=== PATIENT | female | born 1970 | race Caucasian/White ===

== ENCOUNTER → 2021-04-12 10:01 | Outpatient (CLI) | payer BC, SELFPAY ==
[2021-04-12 10:31] LABS: Absolute Lymphocyte Count 1.24 X10^3/uL (0.83-4.51); Absolute Neutrophil Count 2.6 X10^3/uL (2.0-7.7); Basophil# 0.04 X10^3/uL; Basophil% 0.9 % (0-1); Eosinophil# 0.02 X10^3/uL; Eosinophils% 0.5 % (0-5); Hematocrit 39.1 % (37-47); Hemoglobin 13.1 g/dL (12.0-15.0); Lymphocyte # 1.24 X10^3/ul (0.83-4.51); Lymphocyte % 28.9 % (19-41); Mean Corp Hgb Conc 33.5 g/dL (32-36); Mean Corpuscular Hgb 29.4 pg (27.0-32.0); Mean Corpuscular Volume 87.7 fL (81-99); Mean Platelet Vol. 10.5 fl (6.2-12.0); Monocyte% 9.3 % (0-10); NRBC Flagged by Analyzer 0 % (0-5); Neutrophil # 2.58 X10^3/uL (2.7-7.7); Neutrophil % 60.2 % (47-70); Platelet Count 196 K/mm3 (150-450); RBC Distribution Width SD 41.7 fl (35.1-43.9); Red Blood Count 4.46 M/mm3 (4.2-5.4); White Blood Count 4.3 K/mm3 (4.4-11.0)
[2021-04-12 11:07] LABS: Vitamin D,25 Hydroxy 33.1 ng/mL
[2021-04-12 11:14] LABS: AST(SGOT) 22 U/L (15-37); Alanine Aminotransfer ALT/SGPT 23 U/L (13-56); Albumin, Serum 3.9 g/dL (3.2-5.0); Alkaline Phosphatase 62 U/L (45-117); Anion Gap 7 (5-15); BUN 13 mg/dL (7-18); BUN/Creat Ratio 15.3 RATIO (10-20); Chloride 106 mmol/L (98-107); Cholesterol 222 mg/dL (200); Creatinine, Serum 0.85 mg/dL (0.55-1.02); EST Glomerular Filtration Rate 74 mL/min (>60); Est Glom Filt Rate - Afr Amer 90 mL/min (>60); Free T3 2.4 pg/mL (2.18-3.98); Glucose 87 mg/dL (74-106); High Density Lipoprotein 80 mg/dL; Iron 89 ug/dL (50-170); Iron Binding Capacity,Total 421 ug/dL (250-450); Potassium 3.8 mmol/L (3.5-5.1); Protein, Total 7.9 g/dL (6.4-8.2); Sodium Level 139 mmol/L (136-145); T4 Free Direct 0.55 ng/dL (0.76-1.46); Thyroid Stim Hormone (TSH) 7.24 uIU/mL (0.358-3.74); Triglycerides 68 mg/dL; Very Low Density Lipoprotein 14 mg/dL (5-40)
[2021-04-23 14:44] LABS: T3 Reverse 6.5 ng/dL (9.2-24.1); Thyroglobulin Antibody < 1.0 IU/mL (0.0-0.9); Thyroid Peroxidase AB < 8 IU/mL (0-34)
== END ==
PROVIDERS: PCP Family Medicine
DX: E03.9 Hypothyroidism, unspecified (principal); D64.9 Anemia, unspecified; E44.1 Mild protein-calorie malnutrition; E78.5 Hyperlipidemia, unspecified; E55.9 Vitamin D deficiency, unspecified
CPT/HCPCS: 36415; 80053; 80061; 82306; 83540; 83550; 84439; 84443; 84481; 84482; 85025; 86376; 86800

== ENCOUNTER 2021-07-04 10:21 | Outpatient (CLI) | payer BC, SELFPAY ==
[2021-07-04 11:29] LABS: Free T3 2.4 pg/mL (2.18-3.98); T4 Free Direct 0.74 ng/dL (0.76-1.46); Thyroid Stim Hormone (TSH) 4.01 uIU/mL (0.358-3.74)
[2021-07-04 11:30] LABS: Vitamin D,25 Hydroxy 60.6 ng/mL
== END 2021-07-04 23:59 | disposition home or self-care (01) ==
PROVIDERS: PCP Family Medicine; Visit Provider Chiropractor
DX: E55.9 Vitamin D deficiency, unspecified (principal); E03.9 Hypothyroidism, unspecified; R53.83 Other fatigue
CPT/HCPCS: 36415; 82306; 84439; 84443; 84481

== ENCOUNTER → 2021-11-08 | Outpatient (CLI) | payer BC, SELFPAY ==
[2021-11-08 11:39] LABS: Free T3 2.5 pg/mL (2.18-3.98); T4 Free Direct 0.81 ng/dL (0.76-1.46); Thyroid Stim Hormone (TSH) 0.74 uIU/mL (0.358-3.74)
== END | disposition home or self-care (01) ==
LOC: LAB 10:04
DX: E03.9 Hypothyroidism, unspecified (principal)
CPT/HCPCS: 36415; 84439; 84443; 84481

== ENCOUNTER → 2022-03-04 | Outpatient (CLI) | payer BC, SELFPAY ==
[2022-03-04 11:05] LABS: Free T3 2.1 pg/mL (2.18-3.98); T4 Free Direct 0.97 ng/dL (0.76-1.46); Thyroid Stim Hormone (TSH) 6.22 uIU/mL (0.358-3.74)
== END | disposition home or self-care (01) ==
LOC: LAB 09:19
DX: E03.9 Hypothyroidism, unspecified (principal)
CPT/HCPCS: 36415; 84439; 84443; 84481

== ENCOUNTER → 2022-07-30 | Outpatient (CLI) | payer BC, SELFPAY ==
[2022-07-30 11:05] LABS: Vitamin D,25 Hydroxy 55.4 ng/mL
[2022-07-30 11:14] LABS: T4 Free Direct 0.65 ng/dL (0.76-1.46)
== END | disposition home or self-care (01) ==
DX: E55.9 Vitamin D deficiency, unspecified (principal); E03.9 Hypothyroidism, unspecified
CPT/HCPCS: 36415; 82306; 84439; 84443; 84481

== ENCOUNTER → 2023-07-30 | Outpatient (CLI) | payer BC, SELFPAY ==
[2023-07-30 11:31] LABS: T4 Free Direct 0.63 ng/dL (0.76-1.46); Thyroid Stim Hormone (TSH) 0.75 uIU/mL (0.358-3.74)
== END | disposition home or self-care (01) ==
LOC: LAB 09:21
DX: E03.9 Hypothyroidism, unspecified (principal)
CPT/HCPCS: 36415; 84439; 84443; 84481

== ENCOUNTER → 2024-09-09 | Outpatient (CLI) | payer BC, SELFPAY ==
[2024-09-09 13:45] LABS: Free T3 2.7 pg/mL (2.18-3.98)
== END | disposition home or self-care (01) ==
LOC: LAB 10:05
DX: E03.9 Hypothyroidism, unspecified (principal)
CPT/HCPCS: 36415; 84439; 84443; 84481

== ENCOUNTER → 2025-02-28 | Outpatient (CLI) | payer BC, SELFPAY ==
[2025-02-28 12:01] LABS: Hematocrit 43.3 % (37-47); Hemoglobin 14.5 g/dL (12.0-15.0); Immature Granulocytes Count 0.020 X10^3/uL (0.0-0.0); Mean Corp Hgb Conc 33.5 g/dL (32-36); Mean Corpuscular Volume 86.4 fL (81-99); Mean Platelet Vol. 10.8 fl (6.2-12.0); NRBC Flagged by Analyzer 0 % (0-5); Platelet Count 172 K/mm3 (150-450); RBC Distribution Width CV 13.2 % (11.6-14.6); RBC Distribution Width SD 41.1 fl (35.1-43.9); Red Blood Count 5.01 M/mm3 (4.2-5.4); White Blood Count 4.3 K/mm3 (4.4-11.0)
--- OUTSIDE RECORDS SUMMARY | 2025-02-28 12:07 | XMS RPT_ITS | CCD ---
Author Organization [facility] Care Team Providers Care Bat Boy/Girl Name Role Phone Unavailable Primary Care Provider Unavailabl e RIANNA ESTEVES Referring Unavailable RIANNA ESTEVES Attending Unavailable RIANNA ESTEVES Primary Care Unavailable Problems Problem Classification Problem Date Documented Da te Episodic/Chronic Thyroid disorders (1 source) Hypothyroidism, unspecified; Translations: [Hypothyroidism, unspecified] Onset: 09-14-2024 Chronic Results Test Name Value Interpretation Reference Range Facility Free T3on 09-09-2024 Free T3 [Mass/Vol] 2.7 pg/mL Normal 2.18-3.98 [facility] Comment on above: Performed By: #### L 506.0400, L501.62776, L501.9520 #### [facility] [address] [place], [place], [id number] T4 Free Directon 09-09-2024 T4 FREE DIRECT 0.50 ng/dL Low 0.76-1.46 [facility] Comment on above: Performed By: #### L 506.0400, L501.79803, L501.9520 #### [facility] [address] [place], [address] Thyroid Stim Hormone (TSH)on 09-09-2024 TSH 4.560 uIU/mL High 0.300-4.200 [facility] Comment on above: Performed By: #### L 506.0400, [id number], L501.9520 #### [facility] [address] [place], [address] No Panel Informationon 07-29 Free Triiodothyronine (T3) pg/dL 3.0 pg/mL 2.18-3.98 [facility] Serum or plasma thyroid stim ulating hormone (TSH) measurement (units/volume)on 07-30-2023 TSH Qn 0.75 uIU/mL 0.358-3.74 [facility] Thin prep Papanicolaou smear with manual screeningon 07-30-2023 Thin prep Papanicolaou smear with manual screening 0.63 ng/dL 0.76-1.46 [facility] - Chemistry and C hemistry - challengeon 07-30-2022 Free T4 [Mass/Vol] 0.65 ng/dL 0.76-1.46 [facility] No Panel Informationon 07-30 Free Triiodothyronine (T3) pg/dL 3.0 pg/mL 2.18-3.98 [facility] Miscellaneous Test See comment [facility] Comment on above: TEST RESULT LIMITSSe lenium, Serum/Plasma, 129 ug/L 93-198 TESTING PERFORMED AT [facility]. ORIGINAL REPORT ON FILE IN LAB CONTAINS ADDITIONAL TEST SITE INFORMATION. Thyroid Stimulating Hormone (TSH) 1.00 uIU/mL 0.358-3.74 [facility] Vitamin D 25-Hydroxy 55.4 ng/mL [facility] Comment on above: Vitamin D 25(OH) Sta tus Range Deficiency <20 ng/mL (50nmol/L) Insufficiency 20 - 30 ng/mL (50 - 75 nmol/L) Sufficiency 30 - 100 ng/mL (75 - 250 nmol/L) Toxicity >100 ng/mL (>250 nmol/L) Laboratory - Chemistry and C hemistry - challengeon 03-04-2022 Free T4 [Mass/Vol] 0.97 ng/dL 0.76-1.46 [facility] Work Phone: No Panel Informationon 03-04 Free Triiodothyronine (T3) pg/dL 2.1 pg/mL 2.18-3.98 [facility] Work Phone: Thyroid Stimulating Hormone (TSH) 6.22 uIU/mL 0.358-3.74 [facility] Work Phone: Laboratory - Chemistry and C hemistry - challengeon 11-08-2021 Free T4 [Mass/Vol] 0.81 ng/dL 0.76-1.46 [facility] Work Phone: No Panel Informationon 11-08 Free Triiodothyronine (T3) pg/dL 2.5 pg/mL 2.18-3.98 [facility] Work Phone: Thyroid Stimulating Hormone (TSH) 0.74 uIU/mL 0.358-3.74 [facility] Work Phone: Laboratory - Chemistry and C hemistry - challengeon 07-04-2021 Free T4 [Mass/Vol] 0.74 ng/dL 0.76-1.46 [facility] Work Phone: No Panel Informationon 07-04 Free Triiodothyronine (T3) pg/dL 2.4 pg/mL 2.18-3.98 [facility] Work Phone: Miscellaneous Test See comment [facility] Work Phone: Comment on above: TEST RESULT LIMITSIo dine, Serum or Plasma 36.3 Low ug/L 40.0-92.0 Limit of quantitation = 20 TESTING PERFORMED AT [facility]. ORIGINAL REPORT ON FILE IN LAB CONTAINS ADDITIONAL TEST SITE INFORMATION. Thyroid Stimulating Hormone (TSH) 4.01 uIU/mL 0.358-3.74 [facility] Work Phone: Vitamin D 25-Hydroxy 60.6 ng/mL [facility] Work Phone: Comment on above: Vitamin D 25(OH) Sta tus Range Deficiency <20 ng/mL (50nmol/L) Insufficiency 20 - 30 ng/mL (50 - 75 nmol/L) Sufficiency 30 - 100 ng/mL (75 - 250 nmol/L) Toxicity >100 ng/mL (>250 nmol/L) Miscellaneous Referred Testo n 08-29-2020 Result 1: SEE BELOW Normal [facility] Comment on above: Order Comment: royal blue no additive Result Comment: Iodi ne, Serum Iodine, Serum 50.6 ug/L (Ref Interval: 40.0-92.0) Values greater than 250 ug/L may indicate iodine overload. This test was developed and its performance characteristics determined by [employer]. It has not been cleared or approved by the [place] Food and Drug Administration. This test was performed in a CLIA certified laboratory and is intended for clinical purposes. Performed By: #### F T4M, TSH5, T3FE #### [facility] [address] [place] [address] #### VD25H #### [facility] [employer] [facility] [address] [place] [address] #### MSO #### [facility] [employer] Vit D 25-OH, Totalon 021 Vit D 25-OH, Total 32 ng/mL Normal 30-100 [facility] Comment on above: Order Comment: royal blue no additive Result Comment: Ther apy is based on measurement of Total 25-OHD with the following classification levels: Less than 20 ng/mL: Indicative of Vit D deficiency 20-30 ng/mL: Suggests Vit D insufficiency Optimal: Greater than or equal to 30 ng/mL Test performed by [employer] Immunoassay, measuring Total Vitamin D, not individual fractions. Performed By: #### F T4M, TSH5, T3FE #### [facility] [address] [place], [place] #### VD25H #### [facility] [address] [place] [address] #### MSO #### [employer] Free T4on 08-22-2020 Free T4 [Mass/Vol] 0.63 ng/dL Low 0.78-2.19 [facility] Comment on above: Order Comment: royal blue no additive Performed By: #### F T4M, TSH5, T3FE #### [facility] [address] [place], [place] #### VD25H #### [facility] [address] [place] [address] #### MSO #### [employer] Miscellaneous Referred Testo n 08-22-2020 Performed By: see below Normal [facility] Comment on above: Order Comment: royal blue no additive Result Comment: [employer] [place], [place] Performed By: #### F T4M, TSH5, T3FE #### [place] [address] [place], [place] #### VD25H #### [facility] [address] [place] [address] #### MSO #### [employer] GENER[employer] Test Name serum iodine Normal [facility] Comment on above: Order Comment: royal blue no additive Performed By: #### F T4M, TSH5, T3FE #### [place] [address] [place], [place] #### VD25H #### [facility] [address] [place] [address] #### MSO #### [employer] T3, Freeon 08-22-2020 Free T3 [Mass/Vol] 3.68 pg/mL Normal 2.77-5.27 [facility] Comment on above: Order Comment: royal blue no additive Result Comment: . Performed By: #### F T4M, TSH5, T3FE #### [place] [address] [place], [place] #### VD25H #### [facility] [address] [place] [address] #### MSO #### [employer] GENERIC SENDOUT Free T3 [Mass/Vol] 3.68 pg/mL 2.77 - 5. 27 pg/mL [employer] Work Phone: Comment on above: . Test Performed by [facility], [address] [place] [address] royal blue no additive [employer] Work Phone: T4, Freeon 08-22-2020 Free T4 [Mass/Vol] 0.63 ng/dL Low 0.78 - 2. 19 ng/dL [employer] Work Phone: Interpretation and review of laboratory results Abnormal [facility] Work Phone: Test Performed by [facility], [address] [place] [phone] royal blue no additive [employer] Work Phone: TSH without Reflexon 021 TSH Qn 4.632 u[IU]/mL 0.465 - 4.680 u[IU]/mL [employer] Work Phone: Test Performed by [facility], [address] [place] [address] royal blue no additive [employer] Work Phone: Thyroid Stim. Hormoneon 08-10 Thyroid Stim. Hormone 4.632 u[IU]/mL Normal 0.465-4.68 0 [facility] Comment on above: Order Comment: royal blue no additive Performed By: #### F T4M, TSH5, T3FE #### [facility] [address] [place] [id number] #### VD25H #### [facility] [address] [place] [address] #### MSO #### [facility] Miscellaneous Referred Testo n 03-23-2020 Result 1: see below Normal [facility] Comment on above: Order Comment: Serum Iodine [place] Blue tube Result Comment: Iodi ne, Serum 53.5 ug/L (Ref Interval: 40.0-92.0) Performed By: #### M SO #### [employer] #### T3FE, TSH5, FT4M #### [address] #### VD25H #### [facility] [address] [place] [address] Vit D 25-OH, Totalon 020 Vit D 25-OH, Total 40 ng/mL Normal 30-100 [facility] Comment on above: Order Comment: Serum Iodine [place] Blue tube Result Comment: Mode rately hemolysed, interpret with caution. Therapy is based on measurement of Total 25-OHD with the following classification levels: Less than 20 ng/mL: Indicative of Vit D deficiency 20-30 ng/mL: Suggests Vit D insufficiency Optimal: Greater than or equal to 30 ng/mL Test performed by [employer] Immunoassay, measuring Total Vitamin D, not individual fractions. Performed By: #### M SO #### [employer] #### T3FE, TSH5, FT4M #### [address] #### VD25H #### [facility] [address] [place] [address] Free T4on 03-16-2020 Free T4 [Mass/Vol] 0.65 ng/dL Low 0.78-2.19 [facility] Comment on above: Order Comment: Serum Iodine [place] Blue tube Performed By: #### M SO #### [employer] #### T3FE, TSH5, FT4M #### [address] #### VD25H #### [facility] [address] [place] [address] Miscellaneous Referred Testo n 03-16-2020 Performed By: see below Normal [facility] Comment on above: Order Comment: Serum Iodine [place] Blue tube Result Comment: [email or web address] [place] Performed By: #### M SO #### [employer] #### T3FE, TSH5, FT4M #### [address] [place], [place] #### VD25H #### [facility] [address] [place] [address] Test Name iodine. Normal [facility] Comment on above: Order Comment: Serum Iodine [place] Blue tube Performed By: #### M SO #### [employer] #### T3FE, TSH5, FT4M #### [facility] [address] [place], [place] #### VD25H #### [facility] [address] [place] [address] Otheron 03-16-2020 Test Performed by [address] [address] Serum Iodine [place] Blue tube [place], [place] T3, Freeon 03-16-2020 Free T3 [Mass/Vol] 4.07 pg/mL Normal 2.77-5.27 [facility] Comment on above: Order Comment: Serum Iodine [place] Blue tube Result Comment: . Performed By: #### M SO #### [employer] #### T3FE, TSH5, FT4M #### [address] #### VD25H #### [facility] [address] [place] [address] Free T3 [Mass/Vol] 4.07 pg/mL 2.77 - 5. 27 pg/mL [place], [place] Comment on above: . T4, Freeon 03-16-2020 Free T4 [Mass/Vol] 0.65 ng/dL Low 0.78 - 2. 19 ng/dL [place] Interpretation and review of laboratory results Abnormal [place] TSH without Reflexon 020 TSH Qn 2.168 u[IU]/mL 0.465 - 4.68 u[IU]/mL [place] Test Performed by [facility], [address] [place] [address] Serum Iodine [place] Blue tube [place] Thyroid Stim. Hormoneon Thyroid Stim. Hormone 2.168 u[IU]/mL Normal 0.465-4.68 0 [facility] Comment on above: Order Comment: Serum Iodine [place] Blue tube Performed By: #### M SO #### [employer] #### T3FE, TSH5, FT4M #### [facility] [address] [place] [address] #### VD25H #### [facility] [address] [place] [address] Encounters Encounter Date Encounter Type Care Provider Facility Start: 09-09-2024 End: 09-09-2024 ambulatory [facility] Facility:[facility] Start: 07-30-2023 End: 07-30-2023 ambulatory [facility] Work Phone: Start: 07-30-2023 End: 07-30-2023 Patient encounter procedure [facility] Work Phone: Start: 07-30-2022 End: 07-30-2022 ambulatory [facility] Work Phone: Start: 07-30-2022 End: 07-30-2022 Patient encounter procedure [facility] Start: 03-04-2022 End: 03-04-2022 ambulatory [facility] Work Phone: Start: 03-04-2022 End: 03-04-2022 Patient encounter procedure [facility] Start: 11-08-2021 End: 11-08-2021 Patient encounter procedure [facility] Start: 07-04-2021 End: 07-04-2021 Patient encounter procedure [facility] Start: 08-22-2020 End: 08-22-2020 Subsequent hospital visit by physician Nery Jacobson Work Phone: [facility] Start: 03-16-2020 End: 03-16-2020 Subsequent hospital visit by physician Nery Jacobson Work Phone: [facility] Procedures Date Procedure Procedure Detail Performing Clinician Start: 08-22-2020 Assay of free thyroxine Nery Jacobson Work Phone: Start: 08-22-2020 Assay of thyroid sti mulating hormone tsh Nery Jacobson Work Phone: Start: 08-22-2020 Assay of triiodothyr onine t3 free Nery Jacobson Work Phone: Start: 03-16-2020 Assay of free thyroxine Nery Jacobson Work Phone: Start: 03-16-2020 Assay of thyroid sti mulating hormone tsh Nery Jacobson Work Phone: Start: 03-16-2020 Assay of triiodothyr onine t3 free Nery Jacobson Work Phone: Plan of Treatment Date Care Activity Detail Author Start: 01-10-2021 Influenza vaccination Flu vacc ine (Season Ended) [employer] Work Phone: Start: 01-11-2020 Influenza vaccination Flu vaccine (# 1) [place], [place] Start: 1986 COVID-19 Vaccine (1) COVID-19 Vaccin e (1) [employer] Work Phone: End: 03-16-2020 Miscellaneous Sendout 1 Miscellaneous Sendout 1 Lab Routine Once for 1 Occurrences starting 03/16/2020 until 03/16/2020 [place], [place] Comment on above: Once for 1 Occurrenc es starting 03/16/2020 until 03/16/2020 Miscellaneous Sendout 1 [place], [place] End: 08-22-2020 Miscellaneous Sendout 1 Miscellaneous Sendout 1 Lab Routine Once for 1 Occurrences starting 08/22/2020 until 08/22/2020 [employer] Work Phone: Comment on above: Once for 1 Occurrenc es starting 08/22/2020 until 08/22/2020 End: 03-16-2020 Vitamin D 25 Hydroxy Vitamin D 25 Hydroxy Lab Routine Once for 1 Occurrences starting 03/16/2020 until 03/16/2020 [place] Comment on above: Once for 1 Occurrenc es starting 03/16/2020 until 03/16/2020 Vitamin D 25 Hydroxy [place] End: 08-22-2020 Vitamin D 25 Hydroxy Vitamin D 25 Hydroxy Lab Routine Once for 1 Occurrences starting 08/22/2020 until 08/22/2020 [facility] Work Phone: Comment on above: Once for 1 Occurrenc es starting 08/22/2020 until 08/22/2020 Payers Date Payer Category Payer Self-pay [id number] 2024 Unknown [id number] Unknown [id number] Social History Date Type Detail Facility Tobacco [facility] [place] Sex Assigned At Not on file [place] Start: 1970 Sex Assigned At Female [facility] Evaluation note Note Date & Type Note Facility Evaluation note No assessment information availa [facility] Work Phone: Summary Purpose Family History No Family History Records FoundNo Family History Records Found Advance Directives No Advanced Directives Records FoundNo Advanced Directives Records Found Additional Source Comments INFORMATION SOURCE (unrecogn ized section and content) DATE CREATED AUTHOR 08/30/2020 [facility] [employer] DATE CREATED AUTHOR AUTHOR'S ORGANIZ ATION 09/17/2024 [facility] Goals (unrecognized section and content) Goals may be documented in a n alternate sectionGoals may be documented in an alternate sectionGoals may be documented in an alternate sectionGoals may be documented in an alternate sectionGoals may be documented in an alternate section Care Teams (unrecognized sec tion and content) Team Status: Active Member Role Status Dates GILMAR LOZOYA Primary Care Provider Active Team Status: Inactive Member Role Status Dates DARELL SCHAFER Primary Care Provide r, Attending Provider, Referring Provider Active FOR RECORDS PERTAINING TO PATIENTS WHO ARE OR HAVE BEEN ENROLLED IN A CHEMICAL DEPENDENCY/SUBSTANCEABUSE PROGRAM, SOME INFORMATION MAY BE OMITTED. This clinical summary was aggregated from multiple sources. Caution should be exercised in using it in the provision of clinical care. This summary normalizes information from multiple sources, and as a consequence, information in this document may materially change the coding, format and clinical context of patient data. In addition, data may be omitted in some cases. CLINICAL DECISIONS SHOULD BE BASED ON THE PRIMARY CLINICAL RECORDS. [facility] [employer] [facility]. provides no warranty or guarantee of the accuracy or completeness of information in this document.
[2025-02-28 12:48] LABS: AST(SGOT) 22 U/L (<=31); Alanine Aminotransfer ALT/SGPT 16 U/L (<=34); Albumin, Serum 4.8 g/dL (3.5-5.0); Alkaline Phosphatase 71 U/L (35-104); Anion Gap 11 (5-15); BUN 16 mg/dL (4-19); BUN/Creat Ratio 20.5 RATIO (10-20); Calcium,Total 9.7 mg/dL (7.6-11.0); Carbon Dioxide 24.8 mmol/L (21.0-32.0); Chloride 103 mmol/L (98-108); Cholesterol 231 mg/dL (<=200); Free T3 4.3 pg/mL (2.18-3.98); Globulin 3.1 g/dL (2.2-4.2); Glucose 91 mg/dL (70-99); Low Density Lipoprotein Calc. 123 mg/dL; Potassium 4.0 mmol/L (3.3-5.1); Triglycerides 121 mg/dL; Very Low Density Lipoprotein 24 mg/dL (5-40); Vitamin D,25 Hydroxy 44.4 ng/mL (30-100); cholesterol:hdl ratio screen 2.64
== END | disposition home or self-care (01) ==
LOC: LAB 11:26
DX: Z00.00 Encounter for general adult medical examination without abnormal findings (principal); Z13.6 Encounter for screening for cardiovascular disorders; Z13.1 Encounter for screening for diabetes mellitus; E03.9 Hypothyroidism, unspecified; E55.9 Vitamin D deficiency, unspecified
CPT/HCPCS: 36415; 80053; 80061; 82306; 83036; 84439; 84443; 84481; 85025